=== PATIENT | female | born 1945 | race Caucasian/White ===

== ENCOUNTER 2019-12-05 08:10 | Outpatient (CLI) | payer MEDICARE, OTHER, SELFPAY ==
--- NOTE | 2019-12-05 08:21 | MR_ITS ---
WS: [id number] MRI RIGHT HIP NONCONTRAST TECHNIQUE: Axial T1, axial T2 fat sat, coronal T1, coronal STIR, sagittal T2 fat sat, sagittal T1, an d sagittal T2 fat sat, of both hips. CLINICAL INFORMATION: REFRACTORY PAIN, FAILED CONSERVATIVE MEASURES/TREATMENTS COMPARISON: None. FINDINGS: Advanced degenerative arthritis right hip with complete loss of the joint space and [id number] west culation. Associated edema within the right femoral head and neck as well as in the right acetabulum. 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 No significant collapse . Moderate joint effusion. Subchondral cystic change involving the adjacent acetabulum. Edema extends into the right iliac wing and adjacent right iliacus. Normal bone marrow signal in the sacrum. No sa cral insufficiency fractures. Normal visualized pubic rami. Diverticulosis.. Moderate degenerative arthritis left hip with joint space narrowing and subchondral cystic change. No significant edema left hip. MR/MR hip RT wo con* [id number] IMPRESSION: 1. Advanced degenerative arthritis right hip with diffuse edema involving the right femoral head and neck and adjacent right acetabulum extending into the marilyn ne iliac wing and adjacent iliacus 2. 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 3. Moderate degenerative arthritis left hip with subchondral cystic change. No significant edema. 4. Sacrum is normal in appearance. No insufficiency fractures.
== END 2019-12-05 08:11 | disposition home or self-care (01) ==
LOC: RADWPI 08:17
PROVIDERS: Family Provider Family Medicine; PCP Family Medicine; Visit Provider Family Medicine
DX: M16.0 Bilateral primary osteoarthritis of hip (principal); M25.451 Effusion, right hip
CPT/HCPCS: 73721

== ENCOUNTER → 2019-12-21 11:53 | Outpatient (BNVA) | payer MEDICARE, OTHER, SELFPAY | PROVIDERS: Family Provider Family Medicine; PCP Family Medicine; Visit Provider Specialist | DX: M25.551 Pain in right hip (principal) | CPT/HCPCS: 73502; 81003; 87081 ==

== ENCOUNTER → 2019-12-26 09:54 | Day surgery (SDC) | payer MEDICARE, OTHER, SELFPAY ==
[2019-12-21 14:55] VITALS: BMI 29.7
--- NOTE | 2019-12-21 15:24 | ANES.PREANE2 ---
Pre-Anesthetic Assessment Pre-Anesthetic Assessment: Height/Weight: Height 1.7 m Weight 86.183 kg Preop Diagnosis: Right hip DJD Proposed Procedure: Operation Date: 12/26/19 16:15 Proposed Procedures p Anterior Total Hip Arthroplasty 45712/M16.11(Right) - Viri Boucher MD Social: Social History: Tobacco (quit 1994) and No alcohol Exam: Pre-Anes Outpt Exam: alert, oriented x 3, clear to auscultation bilaterally and regular rate & rhythm Airway: Submandibular: WNL Cervical ROM: WNL MP: 1 Dentition: False (upper) and Other (teeth ok) History/ROS: No significant history except as noted Pulmonary: Pulmonary: None reported CV/HEM: CV/HEM: None reported : : None reported Hepatic: Hepatic: None reported GI: GI: GERD (occ) Metabolic: Metabolic: Thyroid Musc/skel: Musc/skel: OA/DJD Neuropsych: Neuropsych: None reported Anesthetic Plan: ASA status: 3 Anesthesia: Anesthesia Evaluation and General Risk of > 500 ml blood loss (7ml/kg in children): Yes, adequate IV access and fluids planned PFSH Anesthesia PFSH: Medical History (Updated 12/21/19 @ 15:24 by Marshal Patiño MD) History of hypothyroidism Hx of osteoarthritis Surgical History (Updated 12/21/19 @ 15:24 by Marshal Patiño MD) Hx of foot surgery Social History Smoking and tobacco status: former smoker Alcohol intake: former Data Anesthesia Cardiac Studies: No Data to Display
[2019-12-21 15:51] LABS: Basophils % 0.6 %; Eosinophils # 0.2 10^3/uL (0.0-0.8); Eosinophils % 2.9 %; Hematocrit 40.5 % (37.0-47.0); Hemoglobin 12.8 g/dL (11.5-15.3); Lymphocytes # 1.7 10^3/uL (0.8-4.8); Lymphocytes % 27.5 %; Mean Corpuscular HGB Conc 31.6 g/dL (30.0-36.0); Mean Corpuscular Hemoglobin 28.7 pg (28.0-34.0); Mean Corpuscular Volume 90.8 fL (81-99); Mean Platelet Volume 9.6 fL (7.4-10.4); Monocytes # 0.6 10^3/uL (0.2-0.9); Monocytes % 9.9 %; Neutrophils # 3.6 10^3/uL (1.8-7.7); Neutrophils % 58.8 %; Nucleated Red Blood Cells % 0 %; Platelet Count 286 10^3/cmm (130-400); Red Blood Count 4.46 10^6/uL (4.1-5.3); Red Cell Distribution Width 13.2 % (12.1-15.1); White Blood Count 6.2 10^3/uL (4.0-10.0)
[2019-12-21 16:08] LABS: Alanine Aminotransferase 7 U/L (0-33); Albumin Level 4.1 g/dL (3.5-5.2); Alkaline Phosphatase 90 IU/L (35-105); Anion Gap 16.9 (5-19); Aspartate Amino Transferase 20 U/L (0-32); Blood Urea Nitrogen 13 mg/dL (8-23); Calcium 9.6 mg/dL (8.5-10.5); Carbon Dioxide 26 mmol/L (22-29); Chloride 100 mmol/L (98-107); Globulin 3.3 g/dL (1.3-4.6); Glucose 99 mg/dL (65-115); Osmolality Calculated 284 mOsm/kg (285-295); Potassium 3.9 mmol/L (3.5-5.1); Sodium 139 mmol/L (136-145); Total Bilirubin 0.8 mg/dL (0.15-1.2); Total Protein 7.4 g/dL (6.6-8.7)
[2019-12-26 10:09] VITALS: BP 168/99; PULSE 101; RESP 18; TEMP 37.3; O2SAT 94
[2019-12-26] MEDS: sodium chloride 0.9% 1,000 ML 30 ML IV (10:28)
[2019-12-26] MEDS: CELEcoxib 200 mg Capsule 400 MG PO (10:32)
--- NOTE | 2019-12-26 10:32 | ANES.PREANE2 ---
Pre-Anesthetic Assessment Pre-Anesthetic Assessment: Height/Weight: Height 1.7 m Weight 86.183 kg Temp Pulse Resp BP Pulse Ox 99.1 F 101 H 18 168/99 94 12/26/19 10:09 12/26/19 10:09 12/26/19 10:09 12/26/19 10:09 12/26/19 10:09 Preop Diagnosis: Right hip DJD Proposed Procedure: Operation Date: 12/26/19 12:50 Proposed Procedures p Total Hip Arthroplasty(Right) - Viri Boucher MD Last intake: Intake Last Liquid Date 12/25/19 Last Solid Date 12/25/19 Meds/Allergies Current Medications: Current Medications Generic Name Dose Route Start Last Admin Trade Name Freq PRN Reason Stop Dose Admin Sodium Chloride 1,000 mls @ 30 ml s/hr 12/26/19 08:00 12/26/19 10:28 Sodium Chloride 0.9% IV 12/27/19 07:59 30 mls/hr .Q24H MADONNA Administration PFSH Anesthesia PFSH: Medical History History of hypothyroidism Hx of osteoarthritis Surgical History Hx of foot surgery Social History Smoking and tobacco status: former smoker Alcohol intake: former Data Anesthesia CBC & Chem 7: 12/21/19 15:10 12/21/19 15:10 Cardiac Studies: No Data to Display
[2019-12-26 11:21] LABS: Bilirubin Urine Neg (NEGATIVE); Blood Urine Trace (Negative); Glucose Urine UA Norm (Normal); Ketones Urine Negative (Negative); Leukocyte Esterase Urine 2+ (Negative); Nitrate Urine Negative (Negative); Protein Urine Neg (Negative); Urine Appearance Hazy (CLEAR); Urine Color Yellow (Yellow); Urobilinogen Urine 1 mg/dL (Negative); pH Urine 6.5 (5-7)
[2019-12-26 11:22] LABS: Add Urine Culture? Yes; Bacteria Urine 2+; RBC Urine 0-4 /hpf (0-2); Squamous Epithelial Cell Urine 0-4 (0-5); WBC Urine 40-55 /hpf (0-5)
[2019-12-26 12:55] LABS: Add Urine Culture? Yes; Bacteria Urine TRACE; Bilirubin Urine Neg (NEGATIVE); Blood Urine Neg (Negative); Glucose Urine UA Norm (Normal); Ketones Urine Negative (Negative); Leukocyte Esterase Urine 1+ (Negative); Nitrate Urine Negative (Negative); Protein Urine Neg (Negative); RBC Urine 0-4 /hpf (0-2); Specific Gravity, Urine 1.015 (1.005-1.030); Urine Appearance Cloudy (CLEAR); Urine Color Yellow (Yellow); Urobilinogen Urine Norm (Negative); WBC Urine 55-80 /hpf (0-5)
[2019-12-26] MEDS: cefTRIAXone 1,000 MG in sodium chloride 0.9% (plus) 50 ML 100 MG IV (13:22)
--- NOTE | 2019-12-26 13:28 | PM.MISC ---
Miscellaneous Note Purpose of Documentation: Surgery cancellation Note: The patient presented to the preoperative area and at that time, was found to have a UA demonstrating bacteria, positive leukocyte Estrace, but also significant epithelial cells. She had significant white cells as well. For this reason, a catheter was placed and a cath UA was obtained. The patient continued to demonstrate trace bacteria, but there were multiple white cells. Additionally, leukocyte Estrace remained positive. Secondary to this, the patient's total hip was canceled and rescheduled to January 10.
--- NOTE | 2019-12-26 13:46 | SUR.PREOP ---
Patient here for surgery. UA obtained and resulted. orders obtained for a straight cath UA. which also showed uti. Dr. Boucher in to see patient. Patient reschedulted to January 10 at 0700 and on January 02 at 0945 for a Nurse Visit at Dr. Boucher's office. Orders given for an IV Infusion of 1,000 mg Rocephin to be followed up with oral med.
== END ==
PROVIDERS: Family Provider Family Medicine; PCP Family Medicine; Visit Provider Specialist
PROC: (CPT 27130; principal; 2019-12-26 12:05)
DX: M16.11 Unilateral primary osteoarthritis, right hip (principal); R82.998 Other abnormal findings in urine; Z53.8 Procedure and treatment not carried out for other reasons
CPT/HCPCS: 36415; 80053; 81001; 85025; 87077; 87086; 87186; 96365; J0131; J0696; J2001; J2704; J3010; J3490; J7030

== ENCOUNTER → 2020-01-03 10:10 | Outpatient (BNVA) | payer MEDICARE, OTHER, SELFPAY | PROVIDERS: Family Provider Family Medicine; PCP Family Medicine; Visit Provider Specialist | DX: M16.11 Unilateral primary osteoarthritis, right hip (principal) | CPT/HCPCS: 80053 ==

== ENCOUNTER 2020-01-11 10:41 | Observation (INO) | payer MEDICARE, OTHER, SELFPAY ==
[2020-01-10 09:00] VITALS: BMI 29.7
[2020-01-11] VITALS (22 sets, daily range): BP systolic 101–150; BP diastolic 46–91; PULSE 71–98; RESP 11–20; TEMP 36.1–36.7; O2SAT 93–100
[2020-01-11] MEDS: sodium chloride 0.9% 1,000 ML 30 ML IV (06:32)
--- NOTE | 2020-01-11 06:44 | ANES.PREANE2 ---
Pre-Anesthetic Assessment Pre-Anesthetic Assessment: Height/Weight: Height 1.7 m Weight 86.183 kg Temp Pulse Resp BP Pulse Ox 97.8 F 89 18 150/91 96 01/11/20 06:14 01/11/20 06:14 01/11/20 06:14 01/11/20 06:14 01/11/20 06:14 Preop Diagnosis: Primary osteoarthritis right hip Proposed Procedure: Operation Date: 01/11/20 07:00 Proposed Procedures p Total Hip Arthroplasty 73869 M17.11(Right) - Viri Boucher MD Familial anesthetic complications: NOne Was Beta Myra taken within 24 hours: N/A Last intake: Intake Last Liquid Date 01/10/20 Last Liquid Time 23:55 Last Solid Date 01/09/20 Social: Social History: No alcohol and No tobacco Exam: Pre-Anes Outpt Exam: alert, oriented x 3, clear to auscultation bilaterally and regular rate & rhythm Airway: Cervical ROM: WNL MP: 2 Dentition: False Pulmonary: Pulmonary: None reported CV/HEM: CV/HEM: None reported : : None reported Hepatic: Hepatic: None reported GI: GI: None reported Metabolic: Metabolic: Thyroid Musc/skel: Musc/skel: None reported Neuropsych: Neuropsych: None reported Anesthetic Plan: ASA status: 2 Anesthesia: General Risk of > 500 ml blood loss (7ml/kg in children): Yes, adequate IV access and fluids planned Meds/Allergies Current Medications: Current Medications Generic Name Dose Route Start Last Admin Trade Name Freq PRN Reason Stop Dose Admin Sodium Chloride 1,000 mls @ 30 ml s/hr 01/11/20 06:15 01/11/20 06:32 Sodium Chloride 0.9% IV 01/12/20 06:14 30 mls/hr .Q24H MADONNA Administration PFSH Anesthesia PFSH: Medical History History of hypothyroidism Hx of osteoarthritis Surgical History Hx of foot surgery Social History Smoking and tobacco status: former smoker Alcohol intake: former Data Anesthesia Cardiac Studies: No Data to Display
[2020-01-11] MEDS: CELEcoxib 200 mg Capsule 400 MG PO (06:48)
--- NOTE | 2020-01-11 06:53 | W.PM.OPSUD ---
Surgery/Procedure H&P Update DATE OF PROCEDURE: January 11, 2020 DATE H&P PERFORMED: 12/21/19 H&P UPDATE INFORMATION: I have reviewed H&P completed within last 30 days, I have examined patient prior to procedure and H&P is in [facility] on date indicated PREOP DIAGNOSIS: Primary osteoarthritis right hip PLANNED PROCEDURE: Operation Date: 01/11/20 07:00 Proposed Procedures p Total Hip Arthroplasty 18719 M17.11(Right) - Viri Boucher MD
[2020-01-11 07:00] LABS: Add Urine Microscopic? YES; Bilirubin Urine Neg (NEGATIVE); Blood Urine 2+ (Negative); Glucose Urine UA Norm (Normal); Ketones Urine Negative (Negative); Leukocyte Esterase Urine Negative (Negative); Nitrate Urine Negative (Negative); Protein Urine Neg (Negative); Specific Gravity, Urine 1.015 (1.005-1.030); Urine Appearance Clear (CLEAR); Urine Color Yellow (Yellow); Urobilinogen Urine Norm (Negative); pH Urine 5 (5-7)
[2020-01-11 07:07] LABS: Add Urine Culture? No; Bacteria Urine TRACE; Squamous Epithelial Cell Urine 0-4 (0-5); WBC Urine 0-4 /hpf (0-5)
[2020-01-11] MEDS: vancomycin 1,000 MG SDV 1000 MG XX (08:01)
[2020-01-11] MEDS: ceFAZolin 1,000 mg SDV 1000 MG IRRIGATION (08:02)
--- NOTE | 2020-01-11 08:14 | SUR.OPER ---
Family Notified Of Patient's Status Via Phone.
--- NOTE | 2020-01-11 09:39 | XR_ITS ---
WS: [id number] XR pelvis 1-2V* [id number] REASON FOR EXAM: Status post right total hip arthroplasty FINDINGS: Right total hip the plasties well positioned. No abnormalities in the stem and no fractures of the shafts were seen. XR/XR pelvis 1-2V* [id number] IMPRESSION: Good positioning of the total hip arthroplasty on the right. Noted on the left side there is degenerate changes of the hip joint.
--- NOTE | 2020-01-11 09:54 | PM.OP ---
Operative Report Date of procedure: January 11, 2020 Pre-op Diagnosis: Primary osteoarthritis right hip Post-op diagnosis: same Post-op Findings: Severe degenerative osteoarthritis right hip with large osteophytes and femoral head collapse and cystic changes in the acetabulum Procedure Done: Right total hip arthroplasty utilizing the following implants from the [employer] Accolade II total hip system: The size 54 solid back acetabular shell with an E alpha code and an MDM liner size 42 mm inner diameter by E alpha code. An Accolade II size 5 x 127 degree neck angle hip stem with a Biolox delta ceramic femoral head with a 28 mm outer diameter and +4 mm offset inside of an MDM insert size inner diameter 28 to match the 42E Specimens removed/disposition: Femoral head and synovium sent to pathology Pathology: Femoral head and synovium Surgeon: Viir Boucher Exploitation Analyst: Calli Ruth Anesthesia: General (Intubated, ASA 2) Estimated blood loss (mL): 400 IV fluids (mL): 1,200 Urine output (mL): 150 Complications: None Findings: Severe degenerative osteoarthritis of the right hip with cystic changes in the acetabulum and collapse of the femoral head. Large amount of hip effusion. Following placement of the prosthesis, we had stability at 90 degrees of flexion with 90 degrees of internal rotation and 30 degrees of adduction. We also had stability to toe hang and external rotation. Condition: stable Disposition: PACU (Then to floor for observation overnight, postoperative physical therapy and rehabilitation.) Brief History: This 74-year-old woman presented with complaints of severe right hip pain. She initially was scheduled earlier in the month, however, she had a urinary tract infection requiring treatment. This has been treated and her urine currently demonstrates no evidence of ongoing infection. Risks and complications of surgery were discussed with the patient. She understood and wished to proceed. Consents were signed. Questions were answered. Procedure: Patient was brought to the operating theater. She was transferred to the operating room table and subsequently administered a general anesthetic intubated, ASA 2. Following administration of adequate anesthesia, the patient was placed in full lateral position and held in position with a pegboard. The patient's right lower extremity was then prepped and draped in usual fashion utilizing DuraPrep. It was draped free. Following prepping and draping a surgical pause was performed. At the time of surgical pause, we identified the site and side of surgery. We also identified the patient and preoperative surgical markings. Confirmation was made of equipment availability. Additionally, the patient's preoperative IV antibiotic, Ancef 2 g, as well as TXA, was confirmed as being given in a timely fashion and being the appropriate. Following the surgical pause, an incision was made centering over the patient's greater trochanter continuing proximally and distally as necessary to allow access to the hip joint. Dissection continued through skin and soft tissues using a scalpel, and hemostasis was obtained using electrocautery. The tensor fascia jose was identified and incised longitudinally. Sciatic nerve was identified and protected throughout the surgical procedure. A Charnley U retractor was placed after the tensor fascia jose had been incised longitudinally, and the sciatic nerve had been identified. The hip was internally rotated, and the piriformis muscle was identified and tagged. Piriformis muscle along with the remaining short external rotators were then incised from the posterior aspect of the hip joint. These were retracted posteriorly. The capsule was entered in a T-type fashion with the edges being tagged. There were noted to be significant femoral head osteophytes. Appropriate osteotomy was performed of the femoral neck following hip dislocation. We then evaluated the acetabulum. The femur was retracted anteriorly. Soft tissues were retracted and the labrum was removed. Synovectomy was accomplished as well. Synovium and the femoral head were both sent to pathology for evaluation. There was noted to be significant osteopenia. We then began reaming. Reaming was accomplished sequentially. We reamed to a size 53 to allow for a size 54 acetabular shell. The acetabulum was impacted into position. The dome hole was filled with the appropriate metal plug. Also, we confirmed that the acetabular insert was completely seated prior to addressing the femur. After the acetabulum was in appropriate position, we placed the MDM liner without difficulty. The cup was noted to seat nicely and had good fixation upon impact. Attention was directed to the proximal femur. The proximal femur was lifted out of the wound. A canal finder was passed after the box chisel. The reamer was used to lateralize. We then began broaching. We broached sequentially and had excellent fit and fill with the size 5 Accolade II 127 degree neck angle stem. A trial reduction was accomplished with a +0 mm femoral head inside the appropriate MDM insert. Although this gave excellent stability, it was felt that we should try with a +4 mm femoral head. With this in place, we had the above stabilities, and at that time, we felt that we had restored leg lengths. Therefore, the +4 mm offset femoral head was chosen to reestablish leg lengths and give better stability. Therefore, trial components were removed after the hip was dislocated. The size 5 Accolade II 127 degree neck angle hip stem was impacted into position without difficulty and onto this was placed a +4 mm offset femoral head with the appropriate MDM liner. The hip was then reduced without difficulty. With this construct, we had the above-noted stability. The stem was noted to seat nicely prior to placement of the femoral head. The wound was copiously irrigated with 20 mL of Betadine and 500 mL of normal saline mixed together. Subsequently, we suctioned this out and irrigated the wound copiously with lactated Ringer's. Following reduction of the prosthesis once again, we confirmed the stability of the hip. Leg lengths were also felt to be satisfactory. Being satisfied with the prosthesis, attention was directed to closure. Closure was accomplished with 0 Vicryl in the capsular tissues. Piriformis was reattached with 0 Vicryl as well. Tensor fascia jose was closed with 0 Vicryl in an interrupted fashion. The subcutaneous tissues were closed the combination of 0 Vicryl and 2-0 Monocryl. Vancomycin powder and a Gelfoam thrombin mixture was placed into the wound as well. The skin was closed with a running 3-0 Monocryl followed by Exofin and Steri-Strips. This was covered with Telfa and Tegaderm. The patient was placed in an abduction pillow. She was returned the Recovery Room in a satisfactory condition and will be discharged to the floor for postoperative rehabilitation and pain management. There were no complications.
[2020-01-11] MEDS: fentaNYL 50 mcg/mL INJ 2mL IVP ×2 (09:56→10:02)
[2020-01-11] MEDS: lactated ringers 1,000 ML 100 ML IV ×2 (10:58→18:04)
[2020-01-11] MEDS: oxyCODONE 5 mg IR Tab/Cap PO ×2 (11:58→19:30)
[2020-01-11] MEDS: ondansetron 2 mg/ML SDV 2 mL 4 MG IVP (13:36)
[2020-01-11] MEDS: chlorhexidine gluconate 0.12% Btl 473 mL 30 ML MUCOUS MEM ×2 (13:44→16:06)
[2020-01-11] MEDS: sennosides-docusate Tablet 2 TAB PO (18:03)
[2020-01-11] MEDS: CELEcoxib 200 mg Capsule PO (18:03)
[2020-01-11] MEDS: iron polysaccharide complex 150 mg Capsule PO (18:03)
[2020-01-11] MEDS: calcium carbonate 500 mg Chew Tablet 1000 MG PO (18:03)
[2020-01-12] VITALS (7 sets, daily range): BP systolic 100–130; BP diastolic 63–71; PULSE 73–97; RESP 16–20; TEMP 36.1–37.1; O2SAT 93–96
[2020-01-12] MEDS: lactated ringers 1,000 ML 100 ML IV (01:18)
[2020-01-12] MEDS: oxyCODONE 5 mg IR Tab/Cap PO (05:00)
[2020-01-12] MEDS: CELEcoxib 200 mg Capsule PO (05:01)
[2020-01-12] MEDS: ondansetron 2 mg/ML SDV 2 mL 4 MG IVP (05:03)
--- NOTE | 2020-01-12 09:46 | PC.CHAP ---
Pastoral Care Encounter/Spiritual Assessment Type of Contact [] Declined strapper and buffer visit [] Patient/Family/Request visit [] Outpatient visit [] Follow-up visit [] Physician referral [] Code/Alert [x] Routine visit [] Staff referral [] Actively dying [] Patient sleeping [] Family support [] [] Out of room [] Palliative care [] [] Receiving care in room [] Pre-surgical visit [] Trauma [] Long length of stay [] ICU visit [] Other: Relational/Emotional Strength [] Patient feels connected with others/family/visitors/staff [] Distress [] Loneliness/isolation [] Abandonment Spirituality of Patient [] Person of Jenae [] Attends Islam of their Jenae [] Believes in Prayer [] Reads Bible or Uatsdin materials [] There are Spiritual issues to be addressed Crusher Setter Interventions [x] Prayer [] Active listening [] Non-anxious presence [] Spiritual/emotional support [] Crisis/trauma care [] Spiritual counseling [] Bereavement support [] Provided bereavement packet [] Provided Bible/devotional materials [] Provided toy/stuffed animal, coloring book to patient or family member [] Provided Communion [] Anointing/[place] [] Salvation [x] Completed spiritual assessment [] Other: Impact on Illness or Injury [] Angry [] Fearful [] Anxious [] Often cries [] Exhaustion [] Unable to work [] Unable to attend oriental orthodox [] Unable to walk/stand [] Unable to read [] Unable to drive [] Unable to eat/drink [] Unable to sleep [] Unable to be with family [] Patient intubated [] Other: Summary Hip replacement. Patient setting up in chair, awaiting therapy to begin. Time spent with patient 10 min
[2020-01-12] MEDS: multivitamin therapeutic Tablet 1 TAB PO (10:31)
[2020-01-12] MEDS: levothyroxine 100 mcg Tablet PO (10:31)
[2020-01-12] MEDS: sennosides-docusate Tablet 2 TAB PO (10:31)
[2020-01-12] MEDS: aspirin 325 mg EC Tablet PO (10:31)
[2020-01-12] MEDS: cholecalciferol (vitamin D3) 1,000 unit Tablet 1000 UNIT PO (10:32)
[2020-01-12] MEDS: calcium carbonate 500 mg Chew Tablet 1000 MG PO (10:32)
[2020-01-12] MEDS: chlorhexidine gluconate 0.12% Btl 473 mL 30 ML MUCOUS MEM ×2 (10:33→17:21)
[2020-01-12] MEDS: iron polysaccharide complex 150 mg Capsule PO (10:35)
--- NOTE | 2020-01-12 14:12 | P.DS_ITS ---
Discharge Providers Date of Admission: 01/11/20 10:41 Date of Discharge: January 12, 2020 Attending Provider at Admission: Viri Boucher MD Attending Provider at Discharge: Viri Boucher MD Primary Care Provider: Vijay Turner DO Diagnoses at Discharge Discharge Diagnosis (1) Primary osteoarthritis of right hip: Status: Acute Problem details: Resolved with same-day total hip arthroplasty (2) History of total right hip arthroplasty: Status: Acute Reason for Visit 2 Reason for Visit: Primary osteoarthritis right hip Hospital Course Hospital Course: The patient was admitted on January 10 for same-day surgery. The procedure done was: Right total hip arthroplasty utilizing the following implants from the [employer] Accolade II total hip system: The size 54 solid back acetabular shell with an E alpha code and an MDM liner size 42 mm inner diameter by E alpha code. An Accolade II size 5 x 127 degree neck angle hip stem with a Biolox delta ceramic femoral head with a 28 mm outer diameter and +4 mm offset inside of an MDM insert size inner diameter 28 to match the 42E. Discharge Summary: Patient did well postoperatively. She was admitted for overnight observation and pain management. She was working with physical therapy. She was felt safe to be discharged to home. Therefore, she was discharged to follow-up with me in the office. She will have home physical therapy. Physical Exam Const: COMMON NORMALS: no acute distress, average body habitus, patient oriented x3 and alert GENERAL APPEARANCE: cooperative and comfortable ORIENTATION/CONSCIOUSNESS: Yes awake HENMT: COMMON NORMALS: normocephalic and atraumatic HEAD & SCALP: normoc ephalic and atraumatic Eye: GENERAL EYE: appearance normal, both eyes and all related structures Chest: COMMONS NORMALS: normal inspection of the chest Resp: COMMON NORMALS: normal respiratory effort EFFORT & INSPECTION: Yes able to speak in complete sentences and Yes symmetric chest movement Extremity: GENERAL: Yes normal exam except as noted RIGHT LOWER EXTREMITY: Yes hip joint (Dressing is removed. The wound is benign. There is no evidence of infection or drainage.) Right hip: Yes inspection (The patient is up and ambulating with physical therapy.), Yes palpation (There is minimal to no tenderness to palpation.) and Yes neurovascular exam (Intact with no evidence of DVT.) Neuro: COMMON NORMALS: patient oriented x3 SENSORIUM/ORIENTATION: Yes alert Psych: COMMON NORMALS: mental status grossly normal APPEARANCE: Yes grossly normal ATTITUDE: Yes calm and Yes engaged ATTENTION/CONCENTRATION: Yes attention grossly intact Skin: COMMON NORMALS: no rashes or lesions noted GENERAL SKIN EXAM: no rashes or lesions noted Urinary Catheter Management^: F: Cath Placed During This Visit: yes, but has since been removed by the nurse Reason for Continuing Indwelling Catheter: Perioperative Use in Selected Surgeries Urinary Catheter Date of Insertion: 01/11/20 Urinary Catheter Time of Insertion: 07:20 Date Urinary Catheter Removed: 01/12/20 Time Urinary Catheter Discontinued: 06:30 Discharge Data Data Completed and Pending: Completed Studies During Hospitalization Category Date Time Status XR pelvis 1-2V* 7 2170 Routine Exams 01/11/20 09:39 Completed Pending at discharge Category Date Time Status Complete Blood Co unt w/Auto Lab 01/13/20 04:00 Uncollected Complete Blood Co unt w/Auto Lab 01/14/20 04:00 Uncollected Pathology: Surgic al [PTH] Routine Pth 01/11/20 09:55 Received Vitals: Last Vital Signs Temp 98.1 F 01/12/20 11:10 Pulse 94 01/12/20 12:36 Resp 18 01/12/20 11:10 BP 100/63 01/12/20 11:10 Pulse Ox 93 01/12/20 12:36 Discharge Plan Discharge Patient Disposition: Home Health Service Condition: Stable Prescriptions: New oxycodone 5 mg Tablet 5 mg PO Q4H PRN (Reason: Moderate Pain) Qty: 30 RF: 0 aspirin 325 mg Tablet,Delayed Release (Dr/Ec) 325 mg PO DAILY Qty: 0 RF: 0 celecoxib 200 mg Capsule 200 mg PO DAILY Qty: 30 RF: 0 Continued levothyroxine 100 mcg capsule 100 mcg PO DAILY RF: 0 Complete Multivitamin Tablet 1 tab PO DAILY RF: 0 acetaminophen [Tylenol] 325 mg tablet 325 mg PO QID PRN (Reason: Pain) RF: 0 sulfamethoxazole-trimethoprim [Bactrim DS] 800-160 mg tablet 1 tab PO DAILY MDD 2 tabs RF: 0 Held naproxen sodium [Aleve] 220 mg tablet 220 mg PO Q8H RF: 0 Hold Instructions: Resume on 02/09/20. May resume upon completion of Celebrex Discharge Orders: Discharge Order (Routine); Ordered 06/18/20 Ordered By: Viri Pangburn Referrals: [facility] [Outside] [facility] ([facility]) [Outside] Viri Boucher MD [Physician] - 01/24/20 9:15 am Vijay Turner DO [Primary Care Provider] - Discharge Diet: Advance as tolerated and Usual diet Discharge Activity: Increase activity as tolerated, Limit activity as instructed, Use walker/crutches as instructed and As per PT/OT instructions Activity Restrictions/Additional Instructions: May weight-bear as tolerated with posterior hip precautions as instructed. Work with home physical therapy to progress your ambulation. 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
--- NOTE | 2020-01-12 14:16 | P.DS_ITS ---
Discharge Providers Date of Admission: 01/11/20 10:41 Date of Discharge: January 12, 2020 Attending Provider at Admission: Viri Boucher MD Attending Provider at Discharge: Viri Boucher MD Primary Care Provider: Vijay Turner DO Diagnoses at Discharge Discharge Diagnosis (1) Primary osteoarthritis of right hip: Status: Acute Problem details: Resolved with same-day total hip arthroplasty (2) History of total right hip arthroplasty: Status: Acute Reason for Visit 2 Reason for Visit: Primary osteoarthritis right hip Hospital Course Hospital Course: The patient was admitted on January 10 for same-day surgery. The procedure done was: Right total hip arthroplasty utilizing the following implants from the [employer] Accolade II total hip system: The size 54 solid back acetabular shell with an E alpha code and an MDM liner size 42 mm inner diameter by E alpha code. An Accolade II size 5 x 127 degree neck angle hip stem with a Biolox delta ceramic femoral head with a 28 mm outer diameter and +4 mm offset inside of an MDM insert size inner diameter 28 to match the 42E. Physical Exam Urinary Catheter Management^: F: Cath Placed During This Visit: yes, but has since been removed by the nurse Reason for Continuing Indwelling Catheter: Perioperative Use in Selected Surgeries Urinary Catheter Date of Insertion: 01/11/20 Urinary Catheter Time of Insertion: 07:20 Date Urinary Catheter Removed: 01/12/20 Time Urinary Catheter Discontinued: 06:30 Discharge Data Data Completed and Pending: Completed Studies During Hospitalization Category Date Time Status XR pelvis 1-2V* 7 2170 Routine Exams 01/11/20 09:39 Completed Pending at discharge Category Date Time Status Complete Blood Co unt w/Auto Lab 01/13/20 04:00 Uncollected Complete Blood Co unt w/Auto Lab 01/14/20 04:00 Uncollected Pathology: Surgic al [PTH] Routine Pth 01/11/20 09:55 Received Vitals: Last Vital Signs Temp 98.1 F 01/12/20 11:10 Pulse 94 01/12/20 12:36 Resp 18 01/12/20 11:10 BP 100/63 01/12/20 11:10 Pulse Ox 93 01/12/20 12:36 Discharge Plan Discharge Patient Disposition: Home Health Service Condition: Stable Prescriptions: New oxycodone 5 mg Tablet 5 mg PO Q4H PRN (Reason: Moderate Pain) Qty: 30 RF: 0 aspirin 325 mg Tablet,Delayed Release (Dr/Ec) 325 mg PO DAILY Qty: 0 RF: 0 celecoxib 200 mg Capsule 200 mg PO DAILY Qty: 30 RF: 0 Continued levothyroxine 100 mcg capsule 100 mcg PO DAILY RF: 0 Complete Multivitamin Tablet 1 tab PO DAILY RF: 0 acetaminophen [Tylenol] 325 mg tablet 325 mg PO QID PRN (Reason: Pain) RF: 0 sulfamethoxazole-trimethoprim [Bactrim DS] 800-160 mg tablet 1 tab PO DAILY MDD 2 tabs RF: 0 Held naproxen sodium [Aleve] 220 mg tablet 220 mg PO Q8H RF: 0 Hold Instructions: Resume on 02/09/20. May resume upon completion of Celebrex Discharge Orders: Discharge Order (Routine); Ordered 01/11/20 Ordered By: Viri Boucher Referrals: [facility] [Outside] [facility] Home Care ([facility]) [Outside] Viri Boucher MD [Physician] - 01/24/20 9:15 am Vijay Turner DO [Primary Care Provider] - Discharge Diet: Advance as tolerated and Usual diet Discharge Activity: Increase activity as tolerated, Limit activity as in structed, Use walker/crutches as instructed and As per PT/OT instructions Activity Restrictions/Additional Instructions: May weight-bear as tolerated with posterior hip precautions as instructed. Work with home physical therapy to progress your ambulation. Discharge Attestations Time Spent in Discharge Care*: greater than 30 min Specific Discharge Activities: Specific discharge activities: educating patient and documenting/other paperwork Quality Metrics Clinical Quality Measures During this hospital stay, did patient experience: None Coding Level of Care Code Acute [employer] Fwd Diagnoses Primary osteoarthritis of right hip M16.11 History of total right hip arthroplasty Z96.641
[2020-01-12] MEDS: mupirocin oint 22 gm 1 APPLIC NASAL (17:20)
== END 2020-01-12 18:30 | disposition home health service (06) ==
LOC: MEDSURG 10:41
PROVIDERS: Admitting Provider Specialist; PCP Family Medicine; Visit Provider Specialist
PROC: (CPT 27130; principal; 2020-01-11 07:00)
DX: M16.11 Unilateral primary osteoarthritis, right hip (principal); Z87.891 Personal history of nicotine dependence
CPT/HCPCS: 27130; 12345; 51702; 72170; 81001; 88304; 88305; 96375; 97110; 97116; 97161; 97165; 97530; 97535; C1776; G0378; J0131; J0690; J1100; J2001; J2405; J2704; J3010; J3370; J3490; J7030

== ENCOUNTER → 2020-01-24 09:12 | Outpatient (BNVA) | payer MEDICARE, OTHER, SELFPAY | PROVIDERS: PCP Family Medicine; Visit Provider Specialist | DX: Z96.641 Presence of right artificial hip joint (principal) | CPT/HCPCS: 73502 ==

== ENCOUNTER 2020-03-06 10:04 | Outpatient (CLI) | payer MEDICARE, OTHER, SELFPAY ==
--- NOTE | 2020-03-06 10:37 | XR_ITS ---
WS: [id number] Right hip, AP and frog leg, AP pelvis, 03/06/2020 Clinical Data: post operative Comparison: Right hip, 01/24/2020. Findings: There is a right hip prosthesis in good position. The components have not changed. The pelvis is unre markable. The left hip shows moderate narrowing. The SI joints and pubic symphysis are unremarkable. XR/XR hip RT 2-3V wo/w pel* [id number] Impression: No change in right hip prosthesis.
== END 2020-03-06 10:05 | disposition home or self-care (01) ==
LOC: RAD 10:08
PROVIDERS: PCP Family Medicine; Visit Provider Specialist
DX: Z96.641 Presence of right artificial hip joint (principal)
CPT/HCPCS: 73502

== ENCOUNTER → 2021-03-05 11:19 | Outpatient (BNVA) | payer MEDICARE, OTHER, SELFPAY | PROVIDERS: PCP Family Medicine; Visit Provider Specialist | DX: Z96.641 Presence of right artificial hip joint (principal) | CPT/HCPCS: 73502 ==

== ENCOUNTER 2021-09-15 11:06 | Outpatient (CLI) | payer MEDICARE, OTHER, SELFPAY ==
--- NOTE | 2021-09-15 11:20 | XR_ITS ---
WS: [id number] Exam: XR chest 2V* [id number] Date/Time of Exam: 09/15/2021 11:46 AM Reason For Exam: SHORTNESS OF BREATH Comparison 05/01/2013. Mild interval cardiac enlargement noted. The lungs are clear and fully expanded. No pleural effusions . The mediastinum and osseous thorax are unremarkable. Degenerative changes of the thoracic and lumba r spine. XR/XR chest 2V* [id number] IMPRESSION: 1. Mild interval cardiac enlargement since previous study. 2. No acute infiltrate or other significant finding.
== END 2021-09-15 11:07 | disposition home or self-care (01) ==
LOC: RAD 11:13
PROVIDERS: PCP Family Medicine; Visit Provider Clinical Nurse Specialist Adult Health
DX: R06.02 Shortness of breath (principal); I51.7 Cardiomegaly
CPT/HCPCS: 71046

== ENCOUNTER 2021-11-05 12:51 | Outpatient (CLI) | payer MEDICARE, OTHER, SELFPAY ==
--- NOTE | 2021-11-05 13:48 | PFTS_ITS ---
Date of Study:11/05/21 Date of Dictation: MECHANICS: Forced vital capacity (FVC) is reduced. Forced expiratory volume in one second (FEV1) is reduced. FEV1/FVC is normal. FLOW VOLUME LOOP: Narrow. LUNG VOLUMES: Not measured DIFFUSING CAPACITY FOR CARBON MONOXIDE: Not measured. INTERPRETATION: The postbronchodilator spirometry is consistent with moderate restriction. There is no significant postbronchodilator response. MTDD
== END 2021-11-05 12:52 | disposition home or self-care (01) ==
PROVIDERS: PCP Family Medicine; Visit Provider Clinical Nurse Specialist Adult Health
DX: J45.998 Other asthma (principal)
CPT/HCPCS: 94060; J7611

== ENCOUNTER 2021-11-25 09:44 | Outpatient (CLI) | payer MEDICARE, OTHER, SELFPAY ==
--- NOTE | 2021-11-25 10:27 | USCV_ITS ---
Hannah Lopez Age: 75 Gender: F : 1945 Exam Date: 11/25/2021 10:31 Ordering Phys: Vijay Turner DO Technologist: Chidi Al Exam Location: [facility] Indication: chest pain BP: 123 / 73 HR: 56 Rhythm: Sinus Technical Quality: Adequate MEASUREMENTS (Male / Female) Normal Values 2D ECHO LV Diastolic Diameter PLAX 4.8 cm 4.2 - 5.9 / 3.9 - 5.3 cm LV Systolic Diameter PLAX 5.1 cm IVS Diastolic Thickness 0.7 cm 0.6 - 1.0 / 0.6 - 0.9 cm IVS Systolic Thickness 1.3 cm LVPW Diastolic Thickness 4.6 cm 0.6 - 1.0 / 0.6 - 0.9 cm LVPW Systolic Thickness 1.3 cm LVOT Diameter 2.0 cm LV Ejection Fraction 2D Teich 43.6 % LV Ejection Fraction MOD 2C 26.9 % LV Ejection Fraction 2C AL 27.0 % LA Diameter 3.7 cm Aorta at Sinotubular Diameter 2.7 cm M-MODE Aortic Annulus Diameter 3.3 cm LA Ao Ratio MM 1.3 MV E Point Septal Separation 2.1 cm DOPPLER AV Peak Velocity 121.0 cm/s LVOT Peak Velocity 96.0 cm/s AV Area Cont Eq vti 2.2 cm squared AV Area Cont Eq pk 2.5 cm squared MV Area PHT 5.0 cm squared Mitral E to A Ratio 2.6 MV E' Velocity 87.5 cm/s Mitral E to MV E' Ratio 12.5 Mitral E to LV E' Lateral Ratio 10.6 Mitral E to LV E' Septal Ratio 15.4 TR Peak Velocity 297.0 cm/s TR Peak Gradient 35.3 mmHg TV Peak E Velocity 114.0 cm/s Right Atrial Pressure 3.0 mmHg Pulmonary Artery Systolic Pressu 38.3 mmHg PV Peak Velocity 74.0 cm/s FINDINGS Left Ventricle Severely increased left ventricular cavity size. Moderately decreased left ventricular systolic function. Left ventricular ejection fraction is estimated at 30-35 %. Moderate global hypokinesis. Abnormal diastolic function. Abnormal septal motion consistent with conduction abnormality. Right Ventricle Normal right ventricular size and systolic function, RVSP 55 mmHg. Right Atrium Moderately increased right atrial size. Left Atrium Severely increased left atrial size. Mitral Valve Moderately thickened mitral valve. No mitral valve stenosis. Severe mitral valve regurgitation. Aortic Valve Structurally normal trileaflet aortic valve. No aortic valve stenosis. Ysghdqac-tt-dhtxdx aortic valve regurgitation. Tricuspid Valve Severe tricuspid valve regurgitation. No tricuspid valve stenosis. Arxohjsi-nx-fenieo tricuspid valve regurgitation. Pulmonic Valve Structurally normal pulmonic valve. No pulmonary valve stenosis. Mild pulmonary valve regurgitation. Pericardium No pericardial effusion. Aorta Normal size aortic root. Dilated inferior vena cava with decreased respiratory variation. CONCLUSIONS 1. Severely increased left ventricular cavity size. Moderately decreased left ventricular systolic function. Left ventricular ejection fraction is estimated at 30-35 %. Moderate global hypokinesis. Abnormal diastolic function. 2. Normal right ventricular size and systolic function. 3. Severely increased left atrial size. 4. Zoaaxjtq-cl-wedurl tricuspid valve regurgitation. 5. Rvinkblb-gb-dltano aortic valve regurgitation. 6. Severe mitral valve regurgitation. 7. Moderate pulmonary hypertension with pulm artery pressure estimated at 55 mmHg. 8. No prior similar studies to compare. Liseth Mcleod MD (Electronically Signed) Final Date: 27 Nov 2021 17:27 S
== END 2021-11-25 09:45 | disposition home or self-care (01) ==
LOC: RAD 09:45
PROVIDERS: PCP Family Medicine; Visit Provider Family Medicine
DX: R60.9 Edema, unspecified (principal); R06.00 Dyspnea, unspecified; I27.20 Pulmonary hypertension, unspecified; I34.0 Nonrheumatic mitral (valve) insufficiency; I35.1 Nonrheumatic aortic (valve) insufficiency; I07.1 Rheumatic tricuspid insufficiency
CPT/HCPCS: 93306

== ENCOUNTER → 2021-12-02 08:40 | Outpatient (BNVA) | payer MEDICARE, OTHER, SELFPAY | PROVIDERS: PCP Family Medicine; Visit Provider Clinical Nurse Specialist Adult Health | DX: I50.22 Chronic systolic (congestive) heart failure (principal); E03.9 Hypothyroidism, unspecified | CPT/HCPCS: 80048; 84443 ==

== ENCOUNTER 2021-12-17 19:48 | Emergency (ER) | payer MEDICARE, OTHER, SELFPAY ==
--- NOTE | 2021-12-17 19:54 | ECG_ITS ---
[facility] Test Date: 2021-12-17 Pat Name: Hannah Lopez Department: Room: Gender: Female [employer]ural Firm: : 1945 Requested By: Omar Diallo Order Number: [id number] Yomi MD: Liseth Mcleod M.D. Measurements Intervals [place] Rate: 85 P: 24 NH: 169 QRS: 19 QRSD: 107 T: 47 QT: 401 QTc: 478 Interpretive Statements SINUS RHYTHM POSSIBLE LEFT ATRIAL ENLARGEMENT [-0.1mV P-WAVE IN V1/V2] SEPTAL MYOCARDIAL INFARCTION , PROBABLY OLD [40+ ms Q WAVE IN V1/V2] No previous ECG available for comparison Electronically Signed On 12-17-2021 21:18:31 CDT by Liseth Mcleod M.D. [id number]
[2021-12-17 20:01] VITALS: BP 108/82; PULSE 89; RESP 18; TEMP 37; O2SAT 94; BMI 28.1
--- NOTE | 2021-12-17 20:24 | ED_ITS ---
HPI - General Adult General: Chief complaint: Shortness of Breath/Dyspnea Stated complaint: sob Time Seen by Provider: 12/17/21 19:49 History of Present Illness: Patient is a 75-year-old female with a history of CHF with EF of 30 to 35%, right ventricular heart failure complicated by severe tricuspid valve regurgitation, mitral valve regurgitation who presents the emergency room for evaluation of worsening dyspnea. Patient tells me that she is followed by Dr. Lange ever since starting on metoprolol yesterday afternoon has had increasing shortness of breath and fatigue. Patient has had 3 doses of metoprolol 25 mg. Patient was for the last few month, she has become increasin gly fatigued and is currently on 80 mg of Lasix. Patient denies any active chest pain, palpitation, nausea/vomiting fever/chills, abdominal complaints or complaints at this time. Patient is awaiting with Dr. Lange to follow-up with cardiothoracic surgery at [facility] for revision of severe tricuspid regurgitation and mitral valve regurgitation. Patient denies any fever or chills, cough runny nose sore throat Onset: acute on chronic x 3 ays Duration:ongoing Location:home Severity:moderate Associated symptoms: Reports dyspnea and malaise; Deny chest pain, nausea, rash, palpitations or vomiting Review of Systems Const: Reports: fatigue and malaise; Denies: fever(s) or chills Eyes: Denies: change in vision ENMT: Denies: mouth pain Card: Denies: chest pain or palpitations Resp: Reports: dyspnea; Denies: non-productive cough GI: Denies: abdominal pain, nausea, vomiting or diarrhea : Denies: dysuria Musc: Denies: extremity pain Skin/Breast: Denies: rash or new lesions Neuro: Denies: weakness in extremities Psych: Reports: other (Normal mood) Yosi/Lymph: Denies: easy bruising PFSH ED PFSH: Medical History (Updated 12/17/21 @ 23:51 by Omar Diallo MD) CHF (congestive heart failure) History of hypothyroidism Hx of osteoarthritis Mitral regurgitation Right-sided heart failure Tricuspid regurgitation Surgical History Hx of foot surgery Social History Smoking and tobacco status: former smoker Alcohol intake: former Physical Exam Const: COMMON NORMALS: alert HENMT: COMMON NORMALS: atraumatic HEAD & SCALP: atraumatic MOUTH: moist mucous membranes not abnormal Eye: COMMON NORMALS: EOMs intact bilaterally and conjunctivae normal CONJUNCTIVA: Yes conjunctivae normal Neck/C-Spine: COMMON NORMALS: full ROM and supple Resp: COMMON NORMALS: normal respiratory effort OTHER: +coarse breath sounds b/l Cardio: COMMON NORMALS: regular rate RATE: regular rate GI: COMMON NORMALS: Soft to palpation and non-tender PALPATION: Yes Soft to palpation Extremity: COMMON NORMALS: full ROM NARRATIVE EXTREMITY EXAM: 1+ lower extremity edema b/l Neuro: SENSORIUM/ORIENTATION: Yes alert MOTOR EXAM: No Abnormal motor strength present and Other motor observations present (no focal motor deficits) Psych: COMMON NORMALS: speech normal SPEECH: Yes normal speech MOOD & AFFECT: Yes euthymic mood Course Vital Signs: Vital signs: Vital Signs Temperature 98.6 F 12/17/21 20:01 Pulse Rate 90 12/17/21 23:35 Respiratory Rate 18 12/17/21 23:35 Blood Pressure 137/93 12/17/21 23:35 Pulse Oximetry 93 12/17/21 23:35 MDM - General Adult Medical Decision Making 75-year-old female with a history of CHF with EF of 30 to 35%, right ventricular heart failure complete with severe tricuspid valve regurgitation mitral valve regurgitation presenting to the emergency room with worsening dyspnea after starting metoprolol. Patient has taken 3 doses of metoprolol 25 mg. On ph ysical exam, patient is hemodynamically stable. 1+ lower extremity edema bilaterally. + Mild fine crackles bilaterally. X-ray chest showed no signs of pulmonary edema. proBNP of 3K. She received 40 mg of Lasix. Troponin x2 within normal limit. Patient was told to lower the metoprolol from 50 mg to 25 mg daily. Patient is able to ambulate without family feeling short of breath. I have given patient close follow-up with Dr. Turner for readjustment of beta cal. Disposition: Discharge. Patient counseled regarding diagnostic impression, treatment plan. Patient given ED strict return precautions to return for continuation, worsening, or development of new symptoms. Instructed to f/u w/ PCP regarding symptoms today. Patient verbalized understanding. Lab Data : 12/17/21 22:02 12/17/21 22:02 Radiology Impressions Chest X-Ray 12/17/21 21:12 IMPRESSION: Cardiomegaly. No acute infiltrate. Laboratory Results WBC 7.0 10^3/uL (4.0-10.0) 12/17/21 22: RBC 4.29 10^6/uL (4.1-5.3) 12/17/21 22: Hgb 12.5 g/dL (11.5-15.3) 12/17/21: Hct 38.7 % (37.0-47.0) 12/17/21: MCV 90.2 fl (81-99) 12/17/21: MCH 29.1 pg (28.0-34.0) 12/17/21: MCHC 32.3 g/dL (30.0-36.0) 12/17/21: RDW 14.8 % (12.1-15.1) 12/17/21: Plt Count 177 10^3/cmm (130-400) 12/17/21 22: MPV 10.4 fL (7.4-10.4) 12/17/21 22: Neut % (Auto) 75.4 % 12/17/21: Lymph % (Auto) 15.5 % 12/17/21: [place] % (Auto) 7.5 % 12/17/21: Eos % (Auto) 1.0 % 12/17/21: Baso % (Auto) 0.3 % 12/17/21: Neut # (Auto) 5.31 10^3/uL (1.8-7.7) 12/17/21: Lymph # (Auto) 1.1 10^3/uL (0.8-4.8) 12/17/21: [place] # (Auto) 0.5 10^3/uL (0.2-0.9) 12/17/21 22: Eos # (Auto) 0.1 10^3/uL (0.0-0.8) 12/17/21: Baso # (Auto) 0.0 10^3/uL (0.0-0.1) 05/25/22 22:02 Nucleated RBC % (auto) 0 % 12/17/21 22:02 Nucleated RBCs # 0.0 /100WBC 12/17/21 22:02 Sodium 135 mmol/L (136-145) L 12/17/21 22: Potassium 4.0 mmol/L (3.5-5.1) 12/17/21 22:02 Chloride 98 mmol/L (98-107) 12/17/21 22:02 Carbon Dioxide 24 mmol/L (22-29) 12/17/21 22: Anion Gap 17.0 (5-19) 12/17/21 22: BUN 18 mg/dL (8-23) 12/17/21 22: Creatinine 0.8 mg/dL (0.5-0.9) 12/17/21 22: GFR Calculation Not Reportable 12/17/21 22: Glucose 134 mg/dL (65-115) H 12/17/21 22: Calculated Osmolality 284 mOsm/kg (285-295) L 12/17/21 22: Calcium 10.2 mg/dL (8.5-10.5) 12/17/21 22: Total Bilirubin 1.0 mg/dL (0.15-1.2) 12/17/21 22: AST 29 U/L (0-32) 12/17/21 22: ALT 19 U/L (0-33) 12/17/21 22: Alkaline Phosphatase 99 IU/L (35-105) 12/17/21 22: Troponin T Baseline 17 ng/L (0-10) H 12/17/21 22: Troponin T 120 Minute 17.03 ng/L (0-10) H 12/17/21:58 Delta Troponin T 0.03 ABS# (0-10) 12/17/21 22:58 NT-Pro-B Natriuret Pep 3252 pg/mL (0-450) H 12/17/21 22: Total Protein 6.8 g/dL (6.6-8.7) 12/17/21 22: Albumin 3.9 g/dL (3.5-5.2) 12/17/21 22: Globulin 2.9 g/dL (1.3-4.6) 12/17/21 22:02 Lipase 23 U/L (13-60) 12/17/21 22:02 Imaging Data Other Imaging: Radiologist's impression: [address] [place] [address] XRay Report Signed Patient: Hannah Lopez Unit #: [id number] : 1945 Age/Sex: 75 / F ADM Date: 12/17/21 Loc: ER Room/Bed: Attending Dr: Ordering Provider/Ordering MD: Omar Diallo MD Date of Service: 12/17/21 Procedure(s): XR chest 1V portable [id number] Accession Number(s): [id number] Report Number: [id number] PROCEDURE INFORMATION: Exam: XR Chest Exam date and time: 12/17/2021 9:18 PM Age: 75 years old Clinical indication: Patient HX: Patient is a 75-year-old female with a history of chf with ef of 30 to 35%, right ventricular heart failure complicated by severe tricuspid valve regurgitation, mitral valve regurgitation who presents the emergency room for evaluation of worsening dyspnea. Patient tells me that she is followed by Dr. Dominguez ever since starting on metoprolol yesterday afternoon has had increasing shortness of breath and fatigue. TECHNIQUE: Imaging protocol: XR of the chest. Views: 1 view. COMPARISON: CR XR chest 2V* [id number] 09/15/2021 11:42 AM FINDINGS: Lungs: There is no pulmonary venous congestion. Visualized portions of the lungs are clear. Pleural spaces: Unremarkable. No pleural effusion. No pneumothorax. Heart/Mediastinum: The heart is moderately enlarged. Vasculature: Some atherosclerotic calcification of the aortic arch. Bones/joints: Unremarkable. XR/XR chest 1V portable [id number] IMPRESSION: Cardiomegaly. No acute infiltrate. ? Dictated By: Andrew Thurman Signed By: Andrew Thurman Signed Date/Time: 12/17/212138 DD/ 17 Discharge Plan Discharge Patient Disposition: Home Clinical Impression: Fatigue, CHF exacerbation Condition: Stable Prescriptions: No Action levothyroxine 100 mcg capsule 100 mcg PO DAILY 0RF Complete Multivitamin Tablet 1 tab PO DAILY 0RF acetaminophen [Tylenol] 325 mg tablet 325 mg PO QID PRN (Reason: Pain) 0RF naproxen sodium [Aleve] 220 mg tablet 220 mg PO Q8H 0RF Hold Instructions: Resume on 02/09/20. May resume upon completion of Celebrex amoxicillin 500 mg tablet 500 mg PO ONCE Qty: 24 0RF Rx Instructions: take 4 tabs one hour prior to dental procedure. sulfamethoxazole-trimethoprim [Bactrim DS] 800-160 mg tablet 1 tab PO DAILY MDD 2 tabs 0RF celecoxib 200 mg Capsule 200 mg PO DAILY Qty: 30 0RF aspirin 325 mg Tablet,Delayed Release (Dr/Ec) 325 mg PO DAILY Qty: 0 0RF oxycodone 5 mg Tablet 5 mg PO Q4H PRN (Reason: Moderate Pain) Qty: 30 0RF Discharge Orders: Discharge ED (Routine); Ordered 12/17/21 Ordered By: Omar Diallo Referrals: Vijay Turner DO [Primary Care Provider] - Discharge Diet: Advance as tolerated Discharge Activity: Increase activity as tolerated Patient Instructions: Heart Failure (ED) Activity Restrictions/Additional Instructions: Come back to the emergency room if you have chest pain, any fever or chills, worsening shortness of breath, worsening exertional lightheadedness, or any new or concerning complaints. Coding Level of Care Code ED Supervisor [employer] for Hillary Fwyael Exam Comprehensive
--- NOTE | 2021-12-17 21:12 | XRR_ITS ---
PROCEDURE INFORMATION: Exam: XR Chest Exam date and time: 12/17/2021 9:18 PM Age: 75 years old Clinical indication: Patient HX: Patient is a 75-year-old female with a history of chf with ef of 30 to 35%, right ventricular heart failure complicated by severe tricuspid valve regurgitation, mitral valve regurgitation who presents the emergency room for evaluation of worsening dyspnea. Patient tells me that she is followed by Dr. Dominguez ever since starting on metoprolol yesterday afternoon has had increasing shortness of breath and fatigue. TECHNIQUE: Imaging protocol: XR of the chest. Views: 1 view. COMPARISON: CR XR chest 2V* [id number] 09/15/2021 11:42 AM FINDINGS: Lungs: There is no pulmonary venous congestion. Visualized portions of the lungs are clear. Pleural spaces: Unremarkable. No pleural effusion. No pneumothorax. Heart/Mediastinum: The heart is moderately enlarged. Vasculature: Some atherosclerotic calcification of the aortic arch. Bones/joints: Unremarkable. XR/XR chest 1V portable [id number] IMPRESSION: Cardiomegaly. No acute infiltrate.
[2021-12-17 21:20] VITALS: BP 148/89; PULSE 91; RESP 20; O2SAT 97
--- NOTE | 2021-12-17 21:54 | ECG_ITS ---
[facility] Test Date: 2021-12-17 Pat Name: Hannah Lopez Department: Room: Gender: Female Project Management: : 1945 Requested By: Omar Diallo Order Number: [id number] Yomi MD: Liseth Mcleod M.D. Measurements Intervals [place] Rate: 87 P: 43 CT: 185 QRS: 34 QRSD: 106 T: 53 QT: 411 QTc: 497 Interpretive Statements SINUS RHYTHM POSSIBLE LEFT ATRIAL ENLARGEMENT [-0.1mV P-WAVE IN V1/V2] SEPTAL MYOCARDIAL INFARCTION , PROBABLY OLD [40+ ms Q WAVE IN V1/V2] Compared to ECG 12/17/2021 20:40:52 No significant changes Electronically Signed On 12-17-2021 22:07:57 CDT by Liseth Mcleod M.D. [id number]
[2021-12-17 22:12] LABS: Basophils % 0.3 %; Eosinophils # 0.1 10^3/uL (0.0-0.8); Hematocrit 38.7 % (37.0-47.0); Hemoglobin 12.5 g/dL (11.5-15.3); Lymphocytes # 1.1 10^3/uL (0.8-4.8); Lymphocytes % 15.5 %; Mean Corpuscular HGB Conc 32.3 g/dL (30.0-36.0); Mean Corpuscular Hemoglobin 29.1 pg (28.0-34.0); Mean Corpuscular Volume 90.2 fl (81-99); Mean Platelet Volume 10.4 fL (7.4-10.4); Monocytes # 0.5 10^3/uL (0.2-0.9); Monocytes % 7.5 %; Neutrophils # 5.31 10^3/uL (1.8-7.7); Neutrophils % 75.4 %; Nucleated Red Blood Cells % 0 %; Platelet Count 177 10^3/cmm (130-400); Red Blood Count 4.29 10^6/uL (4.1-5.3); Red Cell Distribution Width 14.8 % (12.1-15.1)
[2021-12-17 22:35] LABS: Troponin(5th) Baseline 17 ng/L (0-10)
[2021-12-17 22:43] LABS: Alanine Aminotransferase 19 U/L (0-33); Albumin Level 3.9 g/dL (3.5-5.2); Alkaline Phosphatase 99 IU/L (35-105); Aspartate Amino Transferase 29 U/L (0-32); Blood Urea Nitrogen 18 mg/dL (8-23); Calcium 10.2 mg/dL (8.5-10.5); Carbon Dioxide 24 mmol/L (22-29); Chloride 98 mmol/L (98-107); Globulin 2.9 g/dL (1.3-4.6); Glucose 134 mg/dL (65-115); Lipase 23 U/L (13-60); NT Pro B Type Natriuretic Pept 3252 pg/mL (0-450); Osmolality Calculated 284 mOsm/kg (285-295); Sodium 135 mmol/L (136-145); Total Protein 6.8 g/dL (6.6-8.7)
[2021-12-17] MEDS: FUROsemide 10 mg/mL SDV 4mL 40 MG IVP (23:00)
[2021-12-17 23:02] VITALS: BP 119/76; PULSE 93; RESP 18; O2SAT 87
[2021-12-17 23:30] LABS: Troponin 5 2HR 17.03 ng/L (0-10)
[2021-12-17 23:34] LABS: Troponin 5 2HR Delta 0.03 ABS# (0-10)
[2021-12-17 23:35] VITALS: BP 137/93; PULSE 90; RESP 18; O2SAT 93
[2021-12-18 00:30] VITALS: BP 120/80; PULSE 88; RESP 20; O2SAT 98
== END 2021-12-18 00:22 | disposition home or self-care (01) ==
PROVIDERS: Emergency Provider Emergency Medicine; PCP Family Medicine
DX: I50.9 Heart failure, unspecified (principal); I08.1 Rheumatic disorders of both mitral and tricuspid valves; R60.0 Localized edema; R53.83 Other fatigue; Z79.82 Long term (current) use of aspirin; E03.9 Hypothyroidism, unspecified
CPT/HCPCS: 71045; 80053; 83690; 83880; 84484; 85025; 93005; 96374; 99284; J1940

== ENCOUNTER → 2021-12-31 11:17 | Outpatient (BNVA) | payer MEDICARE, OTHER, SELFPAY | PROVIDERS: PCP Family Medicine; Visit Provider Family Medicine | DX: J22 Unspecified acute lower respiratory infection (principal); I50.9 Heart failure, unspecified; R60.9 Edema, unspecified; R53.1 Weakness | CPT/HCPCS: 80048; 83880 ==

== ENCOUNTER → 2022-02-26 08:44 | Outpatient (BNVA) | payer MEDICARE, OTHER, SELFPAY | PROVIDERS: PCP Family Medicine; Visit Provider Family Medicine | DX: I50.22 Chronic systolic (congestive) heart failure (principal) | CPT/HCPCS: 80048 ==

== ENCOUNTER → 2022-04-17 08:41 | Outpatient (BNVA) | payer MEDICARE, OTHER, SELFPAY | PROVIDERS: PCP Family Medicine; Visit Provider Family Medicine | DX: I50.22 Chronic systolic (congestive) heart failure (principal) | CPT/HCPCS: 80048 ==

== ENCOUNTER → 2022-05-12 09:07 | Outpatient (BNVA) | payer MEDICARE, OTHER, SELFPAY | PROVIDERS: PCP Family Medicine; Visit Provider Family Medicine | DX: I50.22 Chronic systolic (congestive) heart failure (principal) | CPT/HCPCS: 80048 ==

== ENCOUNTER → 2022-05-26 09:14 | Outpatient (BNVA) | payer MEDICARE, OTHER, SELFPAY | PROVIDERS: PCP Family Medicine; Visit Provider Family Medicine | DX: I50.22 Chronic systolic (congestive) heart failure (principal) | CPT/HCPCS: 80048 ==

== ENCOUNTER → 2022-06-09 13:36 | Outpatient (BNVA) | payer MEDICARE, OTHER, SELFPAY | PROVIDERS: PCP Family Medicine; Visit Provider Family Medicine | DX: E03.9 Hypothyroidism, unspecified (principal); I50.1 Left ventricular failure, unspecified | CPT/HCPCS: 80053; 80061; 84443; 85025 ==

== ENCOUNTER → 2022-07-13 13:58 | Outpatient (BNVA) | payer MEDICARE, OTHER, SELFPAY | PROVIDERS: PCP Family Medicine; Visit Provider Specialist | DX: Z96.641 Presence of right artificial hip joint (principal); M16.12 Unilateral primary osteoarthritis, left hip | CPT/HCPCS: 73502; 99213 ==

== ENCOUNTER → 2022-09-22 08:18 | Outpatient (BNVA) | payer MEDICARE, OTHER, SELFPAY | PROVIDERS: PCP Family Medicine; Visit Provider Family Medicine | DX: E03.9 Hypothyroidism, unspecified (principal); E78.5 Hyperlipidemia, unspecified | CPT/HCPCS: 80053; 80061 ==

== ENCOUNTER → 2022-10-19 08:29 | Outpatient (BNVA) | payer MEDICARE, OTHER, SELFPAY | PROVIDERS: PCP Family Medicine; Visit Provider Specialist | DX: M16.12 Unilateral primary osteoarthritis, left hip (principal); M53.3 Sacrococcygeal disorders, not elsewhere classified; M54.50 Low back pain, unspecified; Z96.641 Presence of right artificial hip joint | CPT/HCPCS: 73502; 99213 ==

== ENCOUNTER → 2022-11-03 09:49 | Outpatient (BNVA) | payer MEDICARE, OTHER, SELFPAY | PROVIDERS: Visit Provider Anesthesiology Pain Medicine | DX: M47.816 Spondylosis without myelopathy or radiculopathy, lumbar region (principal); G89.29 Other chronic pain; M53.3 Sacrococcygeal disorders, not elsewhere classified; M25.552 Pain in left hip; Z96.641 Presence of right artificial hip joint | CPT/HCPCS: 72120; 99204 ==

== ENCOUNTER 2022-11-12 06:00 | Outpatient (RCR) | payer MEDICARE, OTHER, SELFPAY | END 2022-11-22 23:59 | disposition home or self-care (01) | LOC: SPT 06:00 | PROVIDERS: Visit Provider Specialist | DX: M54.50 Low back pain, unspecified (principal) | CPT/HCPCS: 97161 ==

== ENCOUNTER 2022-11-20 07:46 | Outpatient (CLI) | payer MEDICARE, OTHER, SELFPAY ==
--- NOTE | 2022-11-20 08:00 | MR_ITS ---
WS: [id number] MRI LUMBAR SPINE NONCONTRAST HISTORY: Chronic back pain. Spondylosis. COMPARISON: Radiograph 11/03/2022 TECHNIQUE: Sagittal and axial multisequence imaging is submitted. Cervical and thoracic scoliosis and degenerative disc disease with spondylosis. Cervical stenosis due to osteophytes at C3-4 and C4-5. Increase in the lumbar lordosis. L1 retrolisthesis by 4 mm. Disc spaces are narrowed and desiccated t hroughout. Small amount of marrow edema along the endplates of L1-L4. No fractures or acute marrow ed negrita. T12 mild anterior wedging with Schmorl's node. Conus terminates normally at L1. L1-L2: Moderate annular disc bulging and osteophytic ridging encroaching upon the ventral thecal sac and subarticular recesses. Correlate for L2 traversing nerve root symptoms. Mild foraminal stenosis. L2-L3: Mild annular disc bulging with a RIGHT foraminal disc protrusion. Mild encroachment upon the s ubarticular recesses. Mild foraminal and subarticular recess encroachment. L3-L4: Mild annular disc bulging and facet arthropathy. Mild ligamentum flavum hypertrophy. Mild fora imani stenosis. L4-L5: Mild osteophytic ridging with facet joint arthritis. Mild central, bilateral subarticular rece ss and foraminal stenosis. No focal disc protrusion. L5-S1: Mild annular disc bulge. Mild facet joint arthritis. No foraminal stenosis. Indeterminate 2.7 x 1.9 cm mass in the RIGHT renal pelvis. MR/MR lumbar spine wo con* [id number] IMPRESSION: 1. Advanced degenerative changes in the lumbar spine with increase in lordosis and disc space narrowing. 2. L1 retrolisthesis by 4 mm. 3. Mild central, bilateral subarticular recess and foraminal stenosis at L4-5. 4. Encroachment upon the L2 traversing nerve roots. Correlate for L2 nerve tana t symptoms. There is also mild foraminal stenosis at L1-2. 5. Mild bilateral subarticular recess and foraminal encroachment at L2-3. 6. Mild foraminal stenosis at L3-4. 7. Chronic mild anterior wedging of L2 with Schmorl's node. 8. No acute fracture.
== END 2022-11-20 07:47 | disposition home or self-care (01) ==
LOC: RAD 07:51
PROVIDERS: PCP Pediatrics; Visit Provider Anesthesiology Pain Medicine
DX: M47.816 Spondylosis without myelopathy or radiculopathy, lumbar region (principal)
CPT/HCPCS: 72148

== ENCOUNTER 2022-11-23 06:00 | Outpatient (RCR) | payer MEDICARE, OTHER, SELFPAY | END 2022-12-23 23:59 | disposition home or self-care (01) | LOC: SPT 06:00 | PROVIDERS: PCP Family Medicine; Visit Provider Specialist | DX: M54.50 Low back pain, unspecified (principal) | CPT/HCPCS: 97110 ==

== ENCOUNTER → 2022-11-24 12:21 | Outpatient (BNVA) | payer MEDICARE, OTHER, SELFPAY | PROVIDERS: PCP Family Medicine; Visit Provider Family Medicine | DX: E03.9 Hypothyroidism, unspecified (principal); G89.29 Other chronic pain; I50.9 Heart failure, unspecified; M54.9 Dorsalgia, unspecified; M47.816 Spondylosis without myelopathy or radiculopathy, lumbar region | CPT/HCPCS: 80053; 80061; 84443; 85025 ==

== ENCOUNTER → 2022-12-03 08:45 | Outpatient (BNVA) | payer MEDICARE, OTHER, SELFPAY | PROVIDERS: PCP Family Medicine; Visit Provider Anesthesiology Pain Medicine | DX: G89.29 Other chronic pain (principal); M16.11 Unilateral primary osteoarthritis, right hip; M47.816 Spondylosis without myelopathy or radiculopathy, lumbar region; M53.3 Sacrococcygeal disorders, not elsewhere classified; Z96.641 Presence of right artificial hip joint; M48.061 Spinal stenosis, lumbar region without neurogenic claudication; M25.552 Pain in left hip | CPT/HCPCS: 99215 ==

== ENCOUNTER → 2022-12-08 09:01 | Outpatient (BNVA) | payer MEDICARE, OTHER, SELFPAY | PROVIDERS: PCP Family Medicine; Visit Provider Family Medicine | DX: E03.9 Hypothyroidism, unspecified (principal); I50.9 Heart failure, unspecified | CPT/HCPCS: 81241 ==

== ENCOUNTER 2022-12-24 06:00 | Outpatient (RCR) | payer MEDICARE, OTHER, SELFPAY | END 2023-01-22 23:59 | disposition home or self-care (01) | LOC: SPT 06:00 | PROVIDERS: PCP Family Medicine; Visit Provider Specialist | DX: M54.50 Low back pain, unspecified (principal) | CPT/HCPCS: 97110 ==

== ENCOUNTER → 2023-01-04 09:37 | Outpatient (BNVA) | payer MEDICARE, OTHER, SELFPAY | PROVIDERS: PCP Family Medicine; Visit Provider Anesthesiology Pain Medicine | DX: G89.29 Other chronic pain (principal); M47.816 Spondylosis without myelopathy or radiculopathy, lumbar region; M16.11 Unilateral primary osteoarthritis, right hip; Z96.641 Presence of right artificial hip joint; M53.3 Sacrococcygeal disorders, not elsewhere classified; N28.89 Other specified disorders of kidney and ureter | CPT/HCPCS: 36415; 80053; 85025; 99214 ==

== ENCOUNTER 2023-04-06 09:10 | Outpatient (CLI) | payer MEDICARE, OTHER, SELFPAY ==
--- NOTE | 2023-04-06 09:30 | US_ITS ---
WS: [id number] RENAL ULTRASOUND HISTORY: N28.89 - Other specified disorders of kidney and ureter COMPARISON: None available. TECHNIQUE: 2-D and color Doppler imaging of the kidney submitted. Right kidney: 9.9 cm x 4.2 cm x 4.6 cm. Cortex: 1.1 cm Normal size kidney. There is a slightly lobulated cyst in the mid kidney measuring 2.8 x 2.2 x 2.0 cm . No solid mass. No obstruction. Left kidney: 9.9 cm x 3.1 cm x 5.2 cm. Cortex: 1.4 cm Normal echogenicity with no hydronephrosis or mass. Aorta: Normal. Urinary Bladder: Normal distention. IMPRESSION: 1. No solid mass or hydronephrosis. 2. Simple cyst RIGHT kidney, 2.8 cm maximum diameter.
== END 2023-04-06 09:11 | disposition home or self-care (01) ==
PROVIDERS: PCP Family Medicine; Visit Provider Family Medicine
DX: N28.89 Other specified disorders of kidney and ureter (principal); N28.1 Cyst of kidney, acquired
CPT/HCPCS: 76770

== ENCOUNTER → 2023-05-18 11:38 | Outpatient (BNVA) | payer MEDICARE, OTHER, SELFPAY | PROVIDERS: PCP Family Medicine; Visit Provider Family Medicine | DX: E03.9 Hypothyroidism, unspecified (principal); I50.9 Heart failure, unspecified; Z13.6 Encounter for screening for cardiovascular disorders; M54.9 Dorsalgia, unspecified; G89.29 Other chronic pain | CPT/HCPCS: 80053; 80061; 84443 ==

== ENCOUNTER → 2023-08-18 15:55 | Outpatient (BNVA) | payer MEDICARE, OTHER, SELFPAY | PROVIDERS: PCP Family Medicine; Visit Provider Nurse Practitioner Family | DX: R30.0 Dysuria (principal) | CPT/HCPCS: 81003; 87077; 87086; 87184 ==

== ENCOUNTER → 2023-09-07 10:09 | Outpatient (BNVA) | payer MEDICARE, OTHER, SELFPAY | PROVIDERS: PCP Family Medicine; Visit Provider Family Medicine | DX: N39.0 Urinary tract infection, site not specified (principal); E87.1 Hypo-osmolality and hyponatremia | CPT/HCPCS: 80048; 81000; 87086 ==

== ENCOUNTER → 2023-11-02 09:58 | Outpatient (BNVA) | payer MEDICARE, OTHER, SELFPAY | PROVIDERS: PCP Family Medicine; Visit Provider Family Medicine | DX: I50.9 Heart failure, unspecified (principal); E03.9 Hypothyroidism, unspecified; Z96.641 Presence of right artificial hip joint; E55.9 Vitamin D deficiency, unspecified; Z13.6 Encounter for screening for cardiovascular disorders | CPT/HCPCS: 80053; 80061; 82652; 84443 ==

== ENCOUNTER → 2024-04-24 09:25 | Outpatient (BNVA) | payer MEDICARE, OTHER, SELFPAY | PROVIDERS: PCP Family Medicine; Visit Provider Family Medicine | DX: E03.9 Hypothyroidism, unspecified (principal); I50.9 Heart failure, unspecified; R53.83 Other fatigue | CPT/HCPCS: 80053; 82607; 84443; 85025 ==

== ENCOUNTER → 2024-05-23 09:45 | Outpatient (BNVA) | payer MEDICARE, OTHER, SELFPAY | PROVIDERS: PCP Family Medicine; Visit Provider Family Medicine | DX: D64.9 Anemia, unspecified (principal) | CPT/HCPCS: 85025 ==

== ENCOUNTER → 2024-07-11 08:31 | Outpatient (BNVA) | payer MEDICARE, OTHER, SELFPAY | PROVIDERS: PCP Family Medicine; Visit Provider Family Medicine | DX: I50.9 Heart failure, unspecified (principal); I10 Essential (primary) hypertension | CPT/HCPCS: 80048; 80061 ==

== ENCOUNTER → 2024-10-09 09:59 | Outpatient (BNVA) | payer MEDICARE, OTHER, SELFPAY | PROVIDERS: PCP Family Medicine; Visit Provider Family Medicine | DX: I50.9 Heart failure, unspecified (principal); E03.9 Hypothyroidism, unspecified; D64.9 Anemia, unspecified | CPT/HCPCS: 80053; 82306; 82607; 84443; 85025 ==

== ENCOUNTER → 2024-11-02 09:32 | Outpatient (BNVA) | payer MEDICARE, OTHER, SELFPAY | PROVIDERS: PCP Family Medicine; Visit Provider Family Medicine | DX: N28.9 Disorder of kidney and ureter, unspecified (principal); D64.9 Anemia, unspecified; I50.9 Heart failure, unspecified | CPT/HCPCS: 80048; 82728; 83550; 85025; 85045 ==

== ENCOUNTER → 2025-04-05 10:38 | Outpatient (BNVA) | payer MEDICARE, OTHER, SELFPAY | PROVIDERS: PCP Family Medicine; Visit Provider Family Medicine | DX: E03.9 Hypothyroidism, unspecified (principal); N28.9 Disorder of kidney and ureter, unspecified; D64.9 Anemia, unspecified; M54.9 Dorsalgia, unspecified; G89.29 Other chronic pain | CPT/HCPCS: 80053; 80061; 84443; 85025 ==

== ENCOUNTER → 2025-05-15 10:33 | Outpatient (BNVA) | payer MEDICARE, OTHER, SELFPAY | PROVIDERS: PCP Family Medicine; Visit Provider Clinical Nurse Specialist Adult Health | DX: R30.0 Dysuria (principal) | CPT/HCPCS: 81000; 87086 ==

== ENCOUNTER → 2025-06-11 12:49 | Outpatient (BNVA) | payer MEDICARE, OTHER, SELFPAY | PROVIDERS: PCP Family Medicine; Visit Provider Family Medicine | DX: N28.9 Disorder of kidney and ureter, unspecified (principal); I50.810 Right heart failure, unspecified; I50.9 Heart failure, unspecified | CPT/HCPCS: 80048; 83880 ==